=== PATIENT | female | born 1985 | race African-American/Black ===

== ENCOUNTER 2020-10-12 10:08 | Emergency (ER) | payer OTHER ==
[~2020-10-12] VITALS: Ht 170.2 cm; Wt 84.4 kg
[2020-10-12 11:15] VITALS: BP 00/00
== END 2020-10-12 11:15 ==
LOC: ER 10:08
DX: F15.10 Other stimulant abuse, uncomplicated (principal); F41.9 Anxiety disorder, unspecified